=== PATIENT | female | born 1965 | race Caucasian/White ===

== ENCOUNTER → 2018-09-27 | Outpatient (CLI) | payer BC ==
[~2018-09-27] MED LIST: BUPR150T15 PO; CYCL10TA2 PO; ESOM40CA PO; LEXAPRO10 MG PO; TRAM50TA PO
--- NOTE | 2018-09-28 08:53 | KCIC ---
MRI of the lumbar spine without contrast 09/27/2018 CLINICAL HISTORY: Chronic low back pain which radiates down the right leg. TECHNIQUE: Unenhanced T1-weighted and T2-weighted sagittal and axial and inversion recovery sagittal images of the lumbar spine were obtained. FINDINGS: Minimal S-shaped curvature of the thoracolumbar spine is seen. Degenerative signal changes are seen involving the L2-3, L3-4, L4-5 and L5-S1 discs. Degenerative signal changes are seen within the marrow surrounding these discs. Loss of height of the L5-S1 disc is noted. The conus medullaris is normal in morphology, position, and signal characteristics. At the L1-2 and L2-3 disc spaces there are mild generalized disc bulges. Degenerative changes are seen involving the facet joints bilaterally. There is mild ligamentum flavum hypertrophy bilaterally. These findings do not result in significant central spinal canal or neural foraminal stenosis. At the L3-4 disc space there is a mild generalized disc bulge. Degenerative changes are seen involving the facet joints bilaterally. There is mild ligament flavum hypertrophy bilaterally. There is prominence of the posterior epidural fat. These findings when combined result in very mild central spinal canal stenosis. No neural foraminal stenosis is seen. At the L4-5 disc space there is a mild to moderate generalized disc bulge. This is slightly eccentric to the right. Degenerative changes are seen involving the facet joints bilaterally. There is moderate ligamentum flavum hypertrophy bilaterally. These findings when combined result in mild central spinal canal stenosis. No neural foraminal stenosis is seen. At the L5-S1 disc space there is a mild generalized disc bulge. This is eccentric to the right. Degenerative changes are seen involving the facet joints bilaterally. There is mild ligamentum flavum hypertrophy bilaterally. These findings when combined do not result in significant central spinal canal stenosis. Mild right neural foraminal stenosis is seen. The left neural foramen is patent. IMPRESSION: The changes of degenerative disc disease are seen throughout the lumbar spine. These findings result in very mild central spinal canal stenosis at L3-4 and mild central spinal canal stenosis at L4-5. Mild right neural foraminal stenosis is seen at L5-S1. Electronically signed by: Conner Campos MD (09/28/2018 8:50 AM) [facility]
== END | disposition home or self-care (01) ==
LOC: KCIC MRI 12:29
PROVIDERS: ATTEND Nurse Practitioner
DX: M51.16 Intervertebral disc disorders with radiculopathy, lumbar region (principal); M48.061 Spinal stenosis, lumbar region without neurogenic claudication; M46.06 Spinal enthesopathy, lumbar region; G89.29 Other chronic pain
CPT/HCPCS: 72148

== ENCOUNTER → 2019-12-22 | Outpatient (CLI) | payer BC ==
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
== END | disposition home or self-care (01) ==
LOC: KCIC MRI 14:28
PROVIDERS: ATTEND Podiatrist
DX: M25.872 Other specified joint disorders, left ankle and foot (principal); G57.53 Tarsal tunnel syndrome, bilateral lower limbs; R60.0 Localized edema
CPT/HCPCS: 73718